=== PATIENT | female | born 1990 | race Caucasian/White ===

== ENCOUNTER 2019-09-21 09:30 | Outpatient (CLI) | payer OTHER ==
--- NOTE | 2019-09-22 23:11 | Ultrasound Report ---
Reason: EXCESSIVE GROWTH Procedure Date: 09/21/2019 Accession Number: [id number] / [id number] Procedure: US - OB F/U or Repeat CPT Code: Final Report FULL RESULT: EXAM: FOLLOW-UP OBSTETRICAL ULTRASOUND EXAM DATE: 09/21/2019 10:29 AM. CLINICAL HISTORY: EXCESSIVE GROWTH. COMPARISON: Report of outside ultrasound dated 06/29/2019. TECHNIQUE: Real-time sonographic evaluation of the fetus performed by the granular operator. Multiple promotions representative static images were saved for review. DATING: Established EGA 32 weeks 1 day with XAVI 11/15/2019 based on LMP. EGA 34 weeks 3 days with XAVI 10/30/2019 based on the current ultrasound. GENERAL EVALUATION Cohen . Cardiac activity: 150 bpm. movement: Visualized. Presentation: Breech Placenta: Posterior position. Amniotic fluid: Normal. CARMELLA 21.6 cm. MVP 6.8 cm. BIOMETRY Bi-Parietal Diameter (BPD): 8.58 cm, 34 weeks 4 days Head Circumference (HC): 31.0 cm, 34 weeks 4 days Abdominal Circumference (AC): 31.9 cm, 35 weeks 6 days Femur Length (FL): 6.35 cm, 32 weeks 6 days Estimated Weight: 2524 g, 98th percentile for 32 weeks 1 day. IMPRESSION: 1. Cohen live intrauterine with gestational age 32 weeks 1 day based on LMP. 2. Fetus measuring 2 weeks 2 days larger than expected by LMP dating. Estimated weight in the 98th percentile by LMP dating. 3. Normal CARMELLA. RADIA
== END 2019-09-21 09:31 | disposition home or self-care (01) ==
LOC: DI 09:30
PROVIDERS: ATTEND Obstetrics & Gynecology
DX: O26.843 Uterine size-date discrepancy, third trimester (principal); Z3A.32 32 weeks gestation of pregnancy
CPT/HCPCS: 76816

== ENCOUNTER 2019-09-30 12:24 | Outpatient (CLI) | payer OTHER ==
[2019-09-30 12:39] LABS: HGB - HEMOGLOBIN 11.8 g/dL (12.0-16.0); MEAN CORPUSCULAR HEMOGLOBIN 29.4 pg (27.0-31.0); MEAN CORPUSCULAR HGB CONC 32.9 g/dL (32.0-36.0); MEAN CORPUSCULAR VOLUME 89.5 fL (81.0-99.0); MEAN PLATELET VOLUME 10.1 fL (7.9-10.8); RED BLOOD COUNT 4.01 10^6/uL (4.20-5.40); RED CELL DISTRIBUTION WIDTH 13.9 % (12.0-15.0); WHITE BLOOD COUNT 9.5 x10^3/uL (4.8-10.8)
[2019-09-30 13:21] LABS: THYROID STIMULATING HORMONE < 0.08 uIU/mL (0.34-5.60)
[2019-09-30 13:23] LABS: FREE T4 (FREE THYROXINE) 0.75 ng/dL (0.58-1.64); HB2 TOTAL 12.3 g/dL; HEMOGLOBIN A1C 0.5 g/dL; HEMOGLOBIN A1C % 5.9 % (4.6-6.2)
== END 2019-09-30 12:25 | disposition home or self-care (01) ==
LOC: LAB 12:24
PROVIDERS: ATTEND Obstetrics & Gynecology
DX: O36.60X0 Maternal care for excessive fetal growth, unspecified trimester, not applicable or unspecified (principal); O26.819 Pregnancy related exhaustion and fatigue, unspecified trimester; Z3A.00 Weeks of gestation of pregnancy not specified
CPT/HCPCS: 36415; 82306; 83036; 84439; 84443; 84481; 85027

== ENCOUNTER 2019-10-15 12:55 | Outpatient (CLI) | payer OTHER ==
--- NOTE | 2019-10-18 14:45 | Ultrasound Report ---
Reason: EXCESSIVE GROWTH AFFECTING MANAGEMENT OF MOM Procedure Date: 10/15/2019 Accession Number: [id number] / [id number] Procedure: US - OB F/U or Repeat CPT Code: Final Report FULL RESULT: EXAM: FOLLOW-UP OBSTETRICAL ULTRASOUND EXAM DATE: 10/15/2019 02:14 PM. CLINICAL HISTORY: Excessive growth affecting management of mom. COMPARISON: OB F/U OR REPEAT 09/21/2019 9:39 AM. TECHNIQUE: Real-time sonographic evaluation of the fetus performed by the diesel service technician. Multiple unit support representative static images were saved for review. DATING: Established EGA 35 weeks 4 days with XAVI 11/15/2019 based on LMP as working due date. EGA 37 weeks 2 days with XAVI 11/03/2019 based on the current ultrasound. GENERAL EVALUATION Cohen . Cardiac activity: 159 bpm. movement: Visualized. Presentation: Cephalic. Placenta: Posterior position. Amniotic fluid: Normal. CARMELLA 15.8 cm. MVP 7.6 cm. BIOMETRY Bi-Parietal Diameter (BPD): 9.1 cm, 37 weeks 2 days Head Circumference (HC): 33.3 cm, 38 weeks 0 days Abdominal Circumference (AC): 34.2 cm, 38 weeks 1 day Femur Length (FL): 7.0 cm, 35 weeks 6 days Estimated Weight: 3232 g, 93rd percentile for 35 weeks 4 days. MATERNAL STRUCTURES Maternal cervix is long and closed, 4.4 cm. IMPRESSION: 1. Cohen live intrauterine with gestational age 35 weeks 4 days based on LMP as working due date. 2. Estimated weight is within expected limits for assigned dating. 3. Normal interval growth compared to 09/21/2019. RADIA
== END 2019-10-15 12:56 | disposition home or self-care (01) ==
LOC: DI 12:55
PROVIDERS: ATTEND Obstetrics & Gynecology
DX: O36.60X0 Maternal care for excessive fetal growth, unspecified trimester, not applicable or unspecified (principal); Z3A.35 35 weeks gestation of pregnancy
CPT/HCPCS: 76816

== ENCOUNTER 2019-10-18 10:52 | Outpatient (CLI) | payer OTHER ==
[2019-10-18 11:33] LABS: ALBUMIN 3.1 g/dL (3.2-5.5); ALBUMIN/GLOBULIN RATIO 0.9 (1.0-2.2); BILIRUBIN,TOTAL 0.5 mg/dL (0.2-1.0); CALCIUM 8.8 mg/dL (8.5-10.3); CREATININE 0.5 mg/dL (0.4-1.0); TOTAL PROTEIN 6.7 g/dL (6.7-8.2)
[2019-10-18 12:18] VITALS: BP 116/76
--- NOTE | 2019-10-18 18:24 | Labor Flowsheet ---
Labor Flowsheet Datetime Report Generated by CPN: 10/18/2019 18:24 Datetime: 10/18/2019 18:20 Pulse: 97 SpO2 (%): 99 Datetime: 10/18/2019 18:19 VITAL SIGNS NBP Sys/Harika/Mean (mmHg): 154 : 74 : 90
== END 2019-10-18 12:40 | disposition home or self-care (01) ==
LOC: LAB 10:52 → FBP 12:02 → LAB 12:40
PROVIDERS: ATTEND Obstetrics & Gynecology
DX: L29.9 Pruritus, unspecified (principal)
CPT/HCPCS: 36415; 59025; 80053; 82239

== ENCOUNTER 2019-10-21 08:00 | Outpatient (CLI) | payer OTHER ==
[2019-10-22 00:02] LABS: TRICHOMONAS VAGINALIS DNA NEGATIVE (NEGATIVE)
== END 2019-10-21 23:59 | disposition home or self-care (01) ==
LOC: LAB.R 08:00
PROVIDERS: ATTEND Obstetrics & Gynecology
DX: Z36.85 Encounter for antenatal screening for Streptococcus B (principal)
CPT/HCPCS: 87491; 87591; 87661; 87797

== ENCOUNTER 2019-10-21 14:05 | Outpatient (CLI) | payer OTHER ==
[2019-10-21 14:39] LABS: ALBUMIN 2.9 g/dL (3.2-5.5); ALKALINE PHOSPHATASE 114 IU/L (42-121); ALT ALANINE AMINOTRANSFERASE 66 IU/L (10-60); AST ASPARTATE AMINOTRANSFERASE 33 IU/L (10-42); BILIRUBIN,TOTAL 0.5 mg/dL (0.2-1.0); TOTAL PROTEIN 6.4 g/dL (6.7-8.2)
[2019-10-21 14:40] LABS: BILIRUBIN,DIRECT < 0.1 mg/dL (0.1-0.5)
[2019-10-27 10:00] LABS: CHENODEOXYCHOLIC ACID 0.9 umol/L (< OR = 3.1); CHOLIC ACID 2.1 umol/L (< OR = 1.8); DEOXYCHOLIC ACID 0.8 umol/L (< OR = 2.4)
== END 2019-10-21 14:06 | disposition home or self-care (01) ==
LOC: LAB 14:05
PROVIDERS: ATTEND Obstetrics & Gynecology
DX: Z34.80 Encounter for supervision of other normal pregnancy, unspecified trimester (principal); R74.0 Nonspecific elevation of levels of transaminase and lactic acid dehydrogenase [LDH]; L29.9 Pruritus, unspecified
CPT/HCPCS: 36415; 80076; 82542

== ENCOUNTER 2019-10-22 17:44 | Outpatient (CLI) | payer OTHER ==
[2019-10-22 18:23] VITALS: BP 116/65
--- NOTE | 2019-11-01 12:34 | PROCEDURE REPORT ---
- HPI Diagnosis/Indication for NST: Decreased movement Current EDU 11/15/19 Gestation 36 Weeks and 4 Days 2 Para 1 Vital Signs Temperature 36.5 C 10/22/19 18:20 Heart Rate 98 10/22/19 18:20 Respiratory Rate 16 10/22/19 18:20 Blood Pressure 116/65 10/22/19 18:20 Temperature 36.5 C 10/22/19 18:20 Heart Rate 98 10/22/19 18:20 Respiratory Rate 16 10/22/19 18:20 Blood Pressure 116/65 10/22/19 18:20 O2 Saturation - NST Procedure NST Procedure Start Date 10/22/19 Start Time 17:55 Stop Time 18:25 Vibroacoustic Stimulation Used No Patient States Movement Yes: decreased today - Results and Plan Findings/Impression: reactive NST Plan: see nurses note
== END 2019-10-22 18:42 | disposition home or self-care (01) ==
LOC: WFO 17:44 → FBP 17:48 → WFO 18:42
PROVIDERS: ATTEND Obstetrics & Gynecology
DX: O36.8130 Decreased fetal movements, third trimester, not applicable or unspecified (principal); Z3A.36 36 weeks gestation of pregnancy
CPT/HCPCS: 59025

== ENCOUNTER 2019-10-28 11:21 | Outpatient (CLI) | payer OTHER | END 2019-10-28 23:59 | disposition home or self-care (01) | LOC: LAB 11:21 | PROVIDERS: ATTEND Obstetrics & Gynecology | DX: O26.899 Other specified pregnancy related conditions, unspecified trimester (principal); L29.9 Pruritus, unspecified; Z3A.00 Weeks of gestation of pregnancy not specified | CPT/HCPCS: 36415; 81599; 82542 ==

== ENCOUNTER 2019-11-03 13:46 | Outpatient (CLI) | payer OTHER ==
[2019-11-03 14:11] VITALS: BP 120/79
--- NOTE | 2019-11-03 14:48 | HISTORY & PHYSICAL EXAMINATION ---
Admit History - Visit Reason Visit Reason: Other (29yo at 38 2/7 weeks who presents with c/o feeling "wet" last night and abdominal tightening intermittently over the course of the day today. Nothing regular or painful. Normal activity. No vag bleeding, no fluid leak today, no gushes. Denies n/v/f/c or dysuria. Is scheduled for a rpt LTCS next week.) - : 2 Parity: 1 Premature: 0 Ectopic: 0 : 0 Care: positive: [facility] Risk/History: positive: Previous Complications This : positive: Other (Excessive weight gain; maternal obesity) Smoking Status: Never smoker - Mother's Labs Mother's Blood Type: positive: O Mother's RH: positive: Positive GBS: positive: Group B Step Negative Rubella Status: positive: Non-immune (HIV/RPR/HepB NR GC/chlam neg Glucola 119) Review of Systems - All Other Systems All Other Systems: reports: Other (As noted above) Physical - Abdominal Exam Vital Signs: Temp Pulse Resp BP Pulse Ox 97.9 F 108 H 18 120/79 98 11/03/19 14:10 11/03/19 14:10 11/03/19 14:10 11/03/19 14:10 11/03/19 14:10 Contraction Frequency (min/apart): Irregular, irritable pattern Contraction Intensity: positive: Mild, Irritability Uterine Resting Tone: positive: Soft - Monitoring Heart Rate Baseline: 150's, transiently to 170's Strip Review: positive: Category I - Vaginal Exam Membranes: positive: Membranes intact Dilation (in cm): visually closed, thick - Speculum Exam Speculum Exam Performed: positive: Yes Findings: positive: Other (Moderate yellowish DC, no pooled fluid, no blood.) Plan for Labor - Plan For Labor Plan for Labor: 29yo at 38 2/7 weeks, not in labor. Neg amnisure. FH 150's, category 1 Plan DC home. F/U as scheduled.
[2019-11-03 15:16] LABS: RUPTURE OF MEMBRANES PLUS NEGATIVE (NEGATIVE)
== END 2019-11-03 15:30 | disposition home or self-care (01) ==
LOC: WFO 13:46 → FBP 13:49 → WFO 15:30
PROVIDERS: ATTEND Obstetrics & Gynecology
DX: O99.89 Other specified diseases and conditions complicating pregnancy, childbirth and the puerperium (principal); N89.8 Other specified noninflammatory disorders of vagina; O99.213 Obesity complicating pregnancy, third trimester; E66.9 Obesity, unspecified
CPT/HCPCS: 84112; 99213

== ENCOUNTER 2019-11-10 05:22 | Inpatient (IN) | payer OTHER ==
[2019-11-10] MEDS ORDERED: LACTATED RINGERS 1,000 ML IV SCH ×2 (06:00→13:00)
[2019-11-10 06:10] LABS: BASOPHILS % (AUTO) 0.3 %; EOSINOPHILS # (AUTO) 0.1 10^3/uL (0.0-0.7); EOSINOPHILS % (AUTO) 0.8 %; HGB - HEMOGLOBIN 12.1 g/dL (12.0-16.0); LYMPHOCYTES # (AUTO) 1.9 10^3/uL (1.5-3.5); LYMPHOCYTES % (AUTO) 21.2 %; MEAN CORPUSCULAR HEMOGLOBIN 29.2 pg (27.0-31.0); MEAN CORPUSCULAR HGB CONC 33.2 g/dL (32.0-36.0); MEAN CORPUSCULAR VOLUME 88.2 fL (81.0-99.0); MONOCYTES # (AUTO) 0.7 10^3/uL (0.0-1.0); MONOCYTES % (AUTO) 7.8 %; NEUTROPHILS # (AUTO) 6.3 10^3/uL (1.5-6.6); NEUTROPHILS % (AUTO) 68.7 %; PLT - PLATELET COUNT 217 10^3/uL (130-450); RED BLOOD COUNT 4.14 10^6/uL (4.20-5.40); RED CELL DISTRIBUTION WIDTH 13.8 % (12.0-15.0); WHITE BLOOD COUNT 9.2 x10^3/uL (4.8-10.8)
[2019-11-10] MEDS ORDERED: ceFAZolin 2 GM in SODIUM CHLORIDE 0.9% 100ML 100 ML IV ONE (07:07)
--- NOTE | 2019-11-10 07:07 | ANESTHESIA ---
Pre-Anesthesia VS, & Labs - Diagnosis previous c/s - Procedure repeat c/s Vital Signs: Temp Pulse Resp BP Pulse Ox 36.9 C 95 18 120/79 99 11/10/19 05:57 11/10/19 05:57 11/10/19 05:57 11/10/19 05:57 11/10/19 05:57 Height 5 ft 6 in Weight (kg) 120.202 kg - NPO >8 hours - Is Patient ?: Yes - Lab Results Current Lab Results: Laboratory Tests 11/10/19 05:50: WBC 9.2, RBC 4.14 L, Hgb 12.1, Hct 36.5 L, MCV 88.2, MCH 29.2, MCHC 33.2, RDW 13.8, Plt Count 217, MPV 11.0 H, Neut # (Auto) 6.3, Lymph # (Auto) 1.9, [place] # (Auto) 0.7, Eos # (Auto) 0.1, Baso # (Auto) 0.0, Absolute Nuc leated RBC 0.00, Nucleated RBC % 0.0 Fish Bones: 11/10/19 05:50 Home Medications and Allergies Active Medications Cefazolin Sodium 2 gm/ Sodium (Chloride) 100 mls @ 200 mls/hr IV ONCE ONE Stop: 11/10/19 07:36 Acetaminophen (Ofirmev) 100 mls @ 400 mls/hr IV ONCE ONE Stop: 11/10/19 08:21 Lactated Ringer's (Lr) 1,000 mls @ 125 mls/hr IV .Q8H JEAN-CLAUDE Last Admin: 11/10/19 06:09 Dose: 125 mls/hr PNV, vit. D Allergies/Adverse Reactions: Allergies Allergy/AdvReac Type Severity Reaction Status Date / Time No Known Drug Allergies Allergy Verified 11/10/19 05:41 Anes History & Medical History - Anesthetic History Family history of Anesthesia Complications: Denies Family history of Malignant Hyperthermia: Denies - Medical History Cardiovascular: reports: None Pulmonary: reports: None Gastrointestinal: reports: None Urinary: reports: None Neuro: reports: None Musculoskeletal: reports: None Endocrine/Autoimmune: reports: Other (subclinical hyperthyroidism. Is checked every 6 months.) Blood Disorders: reports: None Skin: reports: None Smoking Status: Never smoker Psychosocial: reports: No issues indicated - Surgical History Gynecologic: section - Obstetrical History : 2 Parity: 1 Events: positive: None Complications: positive: None Exam General: Alert, Oriented x3, Cooperative, No acute distress Dental: WNL Mouth Openin Fingerbreadth Neck Mobility: Normal Mallampati classification: II Thyromental Distance: 4-6 cm Respiratory: Lungs clear, Normal breath sounds, No respiratory distress, No accessory muscle use Cardiovascular: Regular rate, Normal S1, Normal S2, No murmurs Mental/Cognitive Status: Alert/Oriented X3, Normal for patient Plan Anesthesia Type: Spinal Consent for Procedure(s) Verified and Reviewed: Yes Code Status: Attempt Resuscitation ASA classification: 2-Mild systemic disease Is this case an emergency?: No
[2019-11-10] MEDS ORDERED: CITRIC ACID/SODIUM CITRATE 15 ML UDC PO ONE (07:22)
[2019-11-10] MEDS ORDERED: LIDOCAINE 1%-EPI 1:100000 20 ML MDV ONE (07:32)
--- NOTE | 2019-11-10 07:48 | HISTORY & PHYSICAL EXAMINATION ---
Admit History - Visit Reason Visit Reason: Other (scheduled and BTL) - : 2 Parity: 1 Care: positive: [facility] Risk/History: positive: None Complications This : positive: None Smoking Status: Never smoker - Other Maternal History Other Maternal History: Patient is a 29-year-old G2, P1 At 39 weeks and 2 days estimated gestational age here for repeat low transverse and bilateral tubal ligation. has been uncomplicated other than some pruritus. Bile acids revealed that cholestasis has been ruled out. No contractions, vaginal bleeding, loss of fluid. Endorses movement. Confirms again today that she desires BTL. O pos/ Rub imm Quad Neg FAS wnl, posterior, CARMELLA 12.2, TVCL 4.9 EFW 77%ile 10/15/19 us 93%ile CARMELLA wnl Influenza 07/28/19 TDAP 06/15/19 Glucola 119 HCT 33.5; on iron Breast pump Rx: given HSV: denies GBS neg MOD: PLanning rLTCS. .Preop on 11/03, scheduled 11/10/19 Desires BTL; has consent signed Meds/Allgy - Allergies Allergies/Adverse Reactions: Allergies Allergy/AdvReac Type Severity Reaction Status Date / Time No Known Drug Allergies Allergy Verified 11/10/19 05:41 Review of Systems - Other Findings Other Findings: As per HPI otherwise remaining systems are negative. Physical - Abdominal Exam Vital Signs: Temp Pulse Resp BP Pulse Ox 98.4 F 95 18 120/79 99 11/10/19 05:57 11/10/19 05:57 11/10/19 05:57 11/10/19 05:57 11/10/19 05:57 Contraction Frequency (min/apart): Rare Contraction Intensity: positive: Mild - Monitoring Heart Rate Baseline: 150 mod mago 15x15 accels no decels Strip Review: positive: Category I Plan for Labor - Plan For Labor Plan for Labor: Admission for rLTCS/BTL: No changes in health history since time of prior exam. Patient confirms desire for BTL. Consent confirmed. Cefazolin 2 g IV on-call to the OR. Bicrhondaa prior to procedure. Proceed to the OR for delivery.
[2019-11-10] MEDS ORDERED: CITRIC ACID/SODIUM CITRATE 15 ML UDC PO SCH (08:00)
[2019-11-10] MEDS ORDERED: ACETAMINOPHEN 1,000 MG/100 ML 100 ML IV ONE (08:07)
[2019-11-10] MEDS ORDERED: LACTATED RINGERS 1,000 ML IV ONE ×2 (08:34→09:17)
[2019-11-10] MEDS ORDERED: LIDOCAINE 1%-EPI 1:100000 30 ML MDV SUBQ ONE (09:16)
--- NOTE | 2019-11-10 10:15 | ANESTHESIA ---
Pre-Anesthesia VS, & Labs Vital Signs: Temp Pulse Resp BP Pulse Ox 36.4 C L 94 16 109/54 L 100 11/10/19 09:56 11/10/19 10:10 11/10/19 10:10 11/10/19 10:10 11/10/19 10:10 Height 5 ft 6 in Weight (kg) 120.202 kg - NPO >8 hours - Is Patient ?: Yes, Waiver signed - Lab Results Current Lab Results: Laboratory Tests 11/10/19 06:30: Blood Type O POSITIVE, Antibody Screen NEGATIVE 11/10/19 05:50: WBC 9.2, RBC 4.14 L, Hgb 12.1, Hct 36.5 L, MCV 88.2, MCH 29.2, MCHC 33.2, RDW 13.8, Plt Count 217, MPV 11.0 H, Neut # (Auto) 6.3, Lymph # (Auto) 1.9, [place] # (Auto) 0.7, Eos # (Auto) 0.1, Baso # (Auto) 0.0, Absolute Nucleated RBC 0.00, Nucleated RBC % 0.0 Fish Bones: 11/10/19 05:50 Home Medications and Allergies Active Medications Citric Acid/Sodium Citrate (Bicitra) 30 ml PO ONCE JEAN-CLAUDE Stop: 11/10/19 11:00 Lactated Ringer's (Lr) 1,000 mls @ 125 mls/hr IV .Q8H JEAN-CLAUDE Last Admin: 11/10/19 06:09 Dose: 125 mls/hr Allergies/Adverse Reactions: Allergies Allergy/AdvReac Type Severity Reaction Status Date / Time No Known Drug Allergies Allergy Verified 11/10/19 05:41 Anes History & Medical History - Medical History Cardiovascular: reports: None Pulmonary: reports: None Gastrointestinal: reports: None Urinary: reports: None Neuro: reports: None Musculoskeletal: reports: None Endocrine/Autoimmune: reports: Other (subclinical hyperthyroidism. Is checked every 6 months.) Blood Disorders: reports: None Skin: reports: None Smoking Status: Never smoker Psychosocial: reports: No issues indicated - Surgical History Gynecologic: section - Obstetrical History : 2 Parity: 1 Events: positive: None Complications: positive: None Exam Dental: WNL Plan ASA classification: 2-Mild systemic disease Is this case an emergency?: No
--- NOTE | 2019-11-10 10:33 | OPERATIVE REPORT ---
Operative Report - General Admit Date: 11/10/19 Planned Procedure: Repeat low transverse and bilateral tubal ligation Pre-Op Diagnosis: IUP at 39w2d; History of prior ; desires sterilization Procedure Performed: Repeat low transverse and bilateral tubal ligation with salpingectomy Post Op Diagnosis: Same and delivery of term gestation - Procedure Note Primary Surgeon: Fariha Guevara MD Secondary Surgeon: Susi Harrison CNM and Keyona Gordillo CNM Anesthesia Provider: Amadeo Reese CRNA, Xavier Fish MD Pathology: Bilateral fallopian tubes, placenta sent for routine discard IV Fluids (mL): 1,100 Estimated Blood Loss (mL): 700 Urine Output (mL): 250 Indications: Patient is a 29 yo at 39w2d with history of a prior desiring repeat. Desires sterilization and confirmed desire again this morning. Findings: Normal uterus, tubes, and ovaries. Female delivered from vertex presenation, weight and Apgars pending. Complications: None - Other Other Information/Narrative: Risks benefits and alternatives of the procedure were discussed. Written informed consent was obtained. Patient was taken to the operating room where spinal anesthesia was placed and found to be adequate. She was prepped and draped in the usual sterile fashion in the dorsal supine position with a leftward tilt. Urena catheter was in place. SCDs were in place and activated. Cefazolin 2 g IV was given as a preoperative antibiotic. Preoperative timeout was performed. A total of 20 cc of 1% lidocaine with epinephrine was injected into the suture line prior to making the incision. A Pfannenstiel incision was made in the skin with a scalpel and carried through the underlying layer of fascia in a combination of sharp and blunt dissection. The fascia was incised in the midline, and the incision was extended laterally with the Collier scissors. The superior aspect of the fascial incision was grasped with the Ernst clamps, elevated, and the underlying rectus muscles were dissected off bluntly and sharply using the Collier scissors. There was significant adhesions from the prior such that the perineum was adherent to the underside of the fascial layer. As such, portions of the rectus and peritoneal adhesions were left in place. Attention was then turned to the inferior aspect of the incision which in a similar fashion was grasped, tented up with Ernst clamps. A similar degree of adhesive disease was present and dissection of the adhesions was not pursued. The rectus muscles were already in the midline. The peritoneum was opened with opening of the fascial layer. That defect in the peritoneum was extended superiorly and inferiorly with good visualization of the bladder. The bladder that blade was then inserted. A bladder flap was not created. The lower uterine segment of the uterus was identified, and incised in a transverse fashion with a scalpel. The uterus was entered bluntly. The uterine incision was extended in a craniocaudal fashion by manual stretch. The bladder blade was removed. The infant was delivered from from vertex position. Baby was wrapped in a warm sterile towel. Delayed cord clamping was performed. After cessation of pulsations, the cord was clamped x2 and cut. The infant was handed off to the waiting pediatricians. The placenta was removed with manual expression. The uterus was exteriorized and cleared of all clots clots and debris via manual swipe using Ray-Lolita x2. The uterine incision was then repaired in a running locked fashion using 0 Vicryl suture. The incisoin was reinforced with a running imbricating layer again using 0-Vicryl suture. Excellent hemostasis was obtained. Attention was then turned to the salpingectomy portion of the procedure. The right fallopian tube was grasped and elevated with Earlene clamps. The Ligasure Impact device was used to seal and divide the underlying mesosalpinx along the extent of the tube. The tube was then sealed and transected at its insertion point on the uterine cornua. The tube was removed from the field and sent to pathology. The procedure was repeated on the left fallopian tube. Good hemostasis wa snoted. The uterus was returned to the abdomen. The gutters were cleared of all clots and debris. The pelvis was irrigated with warm normal saline. The uterine defect was well visualized in normal anatomic position it was noted again to be hemostatic. The peritoneum was then reapproximated with 2-0 Vicryl in a running fashion. The rectus muscles were then reapproximated using interrupted [id number] sutures using 2-0 Chromic. Good hemostasis was noted. The fascia was then closed using 0 Vicryl in a running fashion starting from the left lateral edge to the midline. A second suture was used to close the fascia in a running fashion starting from the right lateral edge and meeting in the midline, again using 0-Vicryl. The subcutaneous tissue was then irrigated and closed using 2-0 chromic in a running subcutaneous suture. Skin was closed in a running subcuticular suture using 4-0 Monocryl. Steri-Strips were applied to reinforce the incsion and dressing was applied. Procedure was well-tolerated and without complication. Sponge lap and needle counts were correct x2. Patient was taken to recovery room in stable condition.
[2019-11-10] MEDS ORDERED: OXYTOCIN/SODIUM CHLORIDE 500 ML IV ONE (12:17)
[2019-11-10] MEDS ORDERED: ONDANSETRON ODT 4 MG TABLET TL PRN (12:36)
[2019-11-10] MEDS ORDERED: oxyCODONE 5 MG TABLET PO PRN (12:36)
[2019-11-10] MEDS ORDERED: OXYTOCIN/SODIUM CHLORIDE 500 ML IV PRN (12:36)
[2019-11-10] MEDS ORDERED: SIMETHICONE CHEW 80 MG TABLET PO PRN (12:36)
[2019-11-10] MEDS ORDERED: ONDANSETRON 4 MG/2 ML VIAL IVP PRN (12:36)
[2019-11-10] MEDS: KETOROLAC 30 MG/ML VIAL IVP SCH ×3 (16:31→22:34)
[2019-11-10] MEDS: SODIUM CHLORIDE FLUSH 0.9% 10 ML SYRINGE IVP PRN ×2 (16:31→22:35)
[2019-11-10] MEDS: SODIUM CHLORIDE FLUSH 0.9% 10 ML SYRINGE IVP SCH (16:31)
[2019-11-10] MEDS ORDERED: NEOSTIGMINE 1 MG/1 ML 10 ML MDV IVP ONE (17:10)
[2019-11-10] MEDS ORDERED: MORPHINE PF 5 MG/10 ML AMP EP ONE (17:10)
[2019-11-10] MEDS ORDERED: ONDANSETRON 4 MG/2 ML VIAL IVP ONE (17:10)
[2019-11-10] MEDS: ACETAMINOPHEN 500 MG TABLET PO SCH (18:31)
[2019-11-10] MEDS: DOCUSATE SODIUM 100 MG CAPSULE PO SCH (21:19)
[2019-11-11] MEDS: ACETAMINOPHEN 500 MG TABLET PO SCH ×4 (02:35→19:03)
[2019-11-11] MEDS: SODIUM CHLORIDE FLUSH 0.9% 10 ML SYRINGE IVP PRN (04:40)
[2019-11-11] MEDS: KETOROLAC 30 MG/ML VIAL IVP SCH (04:40)
[2019-11-11 06:39] LABS: BASOPHILS % (AUTO) 0.3 %; EOSINOPHILS # (AUTO) 0.1 10^3/uL (0.0-0.7); EOSINOPHILS % (AUTO) 0.8 %; HGB - HEMOGLOBIN 10.6 g/dL (12.0-16.0); LYMPHOCYTES # (AUTO) 1.3 10^3/uL (1.5-3.5); LYMPHOCYTES % (AUTO) 12.7 %; MEAN CORPUSCULAR HGB CONC 32.5 g/dL (32.0-36.0); MEAN CORPUSCULAR VOLUME 89.3 fL (81.0-99.0); MEAN PLATELET VOLUME 10.3 fL (7.9-10.8); MONOCYTES # (AUTO) 0.6 10^3/uL (0.0-1.0); MONOCYTES % (AUTO) 5.8 %; NEUTROPHILS % (AUTO) 79.5 %; PLT - PLATELET COUNT 183 10^3/uL (130-450); RED BLOOD COUNT 3.65 10^6/uL (4.20-5.40); RED CELL DISTRIBUTION WIDTH 13.8 % (12.0-15.0); WHITE BLOOD COUNT 10.1 x10^3/uL (4.8-10.8)
[2019-11-11] MEDS: IBUPROFEN 800 MG TABLET PO SCH ×2 (11:58→18:10)
[2019-11-11] MEDS: SODIUM CHLORIDE FLUSH 0.9% 10 ML SYRINGE IVP SCH (14:25)
[2019-11-11] MEDS: DOCUSATE SODIUM 100 MG CAPSULE PO SCH (14:25)
--- NOTE | 2019-11-11 16:57 | Discharge Plan ---
Discharge Plan Problem Reviewed?: Yes Disposition: Home, Self Care Condition: Good Prescriptions: oxyCODONE [Roxicodone] 5 mg PO Q4HR PRN #24 tablet PRN Reason: Pain Diet: Regular Activity Restrictions: Additional Comments (No lifting more than 10# for 4 weeks. Ok to lift baby. No car seats, grocery bags, laundry baskets, etc. Call in your incision becomes hot, hard, red, opens up, and/or has foul smelling discharge. Surgical tape with stay in place until your 1 week follow-up visit. If they start to peel off, it is ok to remove them. Nothing in the vagina for 6 weeks: No intercourse, tampons, douching Call for: -Fever greater than 100.5 -Pain that does not improve with pain medication -Heavy bleeding in which you are soaking a pad an hour for 2 hours in a row) Shower Restrictions: Yes (Do not scrub incision, or apply soap/lotion. Pat dry. ) Driving Restrictions: Yes (No driving while on oxycodone) Additional Instructions or Follow Up instructions: Ibuprofen 600 mg by mouth every 6 hours as needed for pain Acetaminophen 500-1000 mg by mouth every 8 hours as needed for pain Docusate 100-200 mg by mouth twice a day as needed for constipation Oxycodone 5 mg by mouth every 4 hours as needed for pain No Smoking: If you smoke, Please STOP! Call for help. Follow-up with: SHAVONNE MOSCOSO MD, PHD [Physician No Access] -
[2019-11-11 17:01] VITALS: BP 131/85
--- NOTE | 2019-11-11 17:07 | PROVIDER PROGRESS NOTE ---
Subjective - Prog Note Date Prog Note Date: 11/11/19 Prog Note Time: 11:00 - Subjective Subjective: Patient is up and ambulating, tolerating po, and voiding. Pain is well managed with pain medications. BF going well. Patient interested in pm discharge. Objective - Vital Signs/Intake & Output Vital Signs: Vital Signs x48h Temp Pulse Resp BP Pulse Ox 11/11/19 17:00 97.5 F L 97 18 131/85 H 98 11/11/19 10:00 97.7 F 116 H 18 124/80 98 Intake & Output: Intake & Output 11/08/19 11/09/19 11/10/19 11/11/19 23:59 23:59 23:59 23:59 Intake Total 2690 100 Output Total 1735 1676 Balance 955 -1576 - Objective General Appearance: positive: No acute distress Neck: positive: Nml inspection Respiratory: positive: No respiratory distress, Breath sounds nml Cardiovascular: positive: Regular rate & rhythm Abdomen: positive: Other (Appropriately tender. FF below umbi Dressing CDI) Skin: positive: Color nml Extremities: positive: Non-tender, No pedal edema Neurologic/Psychiatric: positive: Oriented x3 - Lab Results Fish Bones: 11/11/19 06:30 Other Labs: Lab Results x24hrs 11/11/19 Range/Units 06:30 WBC 10.1 (4.8-10.8) x10^3/uL RBC 3.65 L (4.20-5.40) 10^6/uL Hgb 10.6 L (12.0-16.0) g/dL Hct 32.6 L (37.0-47.0) % MCV 89.3 (81.0-99.0) fL MCH 29.0 (27.0-31.0) pg MCHC 32.5 (32.0-36.0) g/dL RDW 13.8 (12.0-15.0) % Plt Count 183 (130-450) 10^3/uL MPV 10.3 (7.9-10.8) fL Neut # (Auto) 8.0 H (1.5-6.6) 10^3/uL Lymph # (Auto) 1.3 L (1.5-3.5) 10^3/uL [place] # (Auto) 0.6 (0.0-1.0) 10^3/uL Eos # (Auto) 0.1 (0.0-0.7) 10^3/uL Baso # (Auto) 0.0 (0.0-0.1) 10^3/uL Absolute Nucleated RBC 0.00 x10^3/uL Nucleated RBC % 0.0 /100WBC Assessment/Plan - Problem List (1) deliv NOS-unsp Impression: POD#1 Patient is doing well Interested in pm discharge Meeting goals If cleared by Pediatrics,, ok for pm discharge ETA: Pediatrics cleared for 6 pm discharge Routine discharge instructions given Prescriptions called into [facility] other than hard copy of oxycodone DC to home with fu in one week.
== END 2019-11-11 19:15 | disposition home or self-care (01) | DRG 785 ==
LOC: FBP 05:22
PROVIDERS: ADMIT Obstetrics & Gynecology; ATTEND Obstetrics & Gynecology
PROC: 0UT70ZZ Resection of Bilateral Fallopian Tubes, Open Approach (ICD-10-PCS; 2019-11-10)
PROC: 10D00Z1 Extraction of Products of Conception, Low, Open Approach (ICD-10-PCS; principal; 2019-11-10 07:30)
DX: O34.211 Maternal care for low transverse scar from previous cesarean delivery (principal); O99.89 Other specified diseases and conditions complicating pregnancy, childbirth and the puerperium; N73.6 Female pelvic peritoneal adhesions (postinfective); O99.284 Endocrine, nutritional and metabolic diseases complicating childbirth; E05.90 Thyrotoxicosis, unspecified without thyrotoxic crisis or storm; Z37.0 Single live birth; Z3A.39 39 weeks gestation of pregnancy
CPT/HCPCS: 36415; 85025; 86850; 86900; 86901; A9270; J0131; J7120